=== PATIENT | female | born 1990 | race Two or more races ===

== ENCOUNTER 2021-03-23 06:38 | Emergency (ER) | payer OTHER ==
[~2021-03-23] VITALS: Ht 157.5 cm; Wt 65.8 kg
--- NOTE | 2021-03-23 06:57 | NUR ---
PRESENTED TO THE ER FOR C/O UPPER ABD PAIN RADIATING TO THE BACK AND NECK SINCE LAST NIGHT. +NAUSEA, - VOMITING OR DIARRHEA. + CHILLS. 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 -DYSURIA. PT IS ON LAST DAYS OF HER MENSTRUAL CYCLE. PT AMBULATORY TO THE BATHROOM. URINE COLLECTED. PT WAS PLACED IN BED 1 ER ON MONITOR. VSS. WILL CONT TO MONITOR .
[2021-03-23] MEDS ORDERED: LIDOCAINE VISCOUS 2% UD 15 ML UDC ONE (07:23)
[2021-03-23] MEDS ORDERED: MAG HYDROX/AL HYDROX/SIMETH 30 ML UDC ONE (07:23)
[2021-03-23] MEDS ORDERED: ONDANSETRON HCL/PF 4 MG/2 ML VIAL ONE (07:23)
--- NOTE | 2021-03-23 07:30 | NUR ---
BLOODWORK COLLECTED AND SENT TO LAB
[2021-03-23] MEDS: IV NS 0.9% 1,000 ML BAG IV ONE (07:39)
[2021-03-23 07:40] LABS: BASOPHILS % (AUTO) 0.4 % (0.0-2.0); EOSINOPHILS % (AUTO) 2.3 % (0.0-6.0); HEMATOCRIT 41 % (33-45); HEMOGLOBIN 13.9 g/dL (11.5-14.8); LYMPHOCYTES % (AUTO) 23.3 % (20.0-44.0); MEAN CORPUSCULAR HGB CONC 34 g/dl (31.0-36.0); MEAN CORPUSCULAR VOLUME 89 fL (82-100); MONOCYTES # (AUTO) 0.6 K/uL (0.1-1.30); NEUTROPHILS # (AUTO) 5.8 K/uL (1.8-8.9); PLATELET COUNT (AUTO) 251 K/uL (150-450); RED BLOOD CELL COUNT(AUTO) 4.54 MIL/uL (4.0-5.2); WHITE BLOOD COUNT (AUTO) 8.7 K/uL (4.3-11.0)
[2021-03-23] MEDS: ONDANSETRON HCL/PF 4 MG/2 ML VIAL IVP ONE (07:40)
--- NOTE | 2021-03-23 07:40 | NUR ---
INITIATED J CARLOS #20G ON NS
[2021-03-23] MEDS: MAG HYDROX/AL HYDROX/SIMETH 30 ML UDC PO ONE (07:41)
[2021-03-23] MEDS: LIDOCAINE VISCOUS 2% UD 15 ML UDC MM ONE (07:41)
[2021-03-23 07:48] LABS: BILIRUBIN,URINE NEGATIVE (NEGATIVE); COLOR,URINE YELLOW (YELLOW); LEUKOCYTE ESTERASE ,URINE NEGATIVE (NEGATIVE); NITRITE, URINE NEGATIVE (NEGATIVE); PROTEIN,URINE NEGATIVE (NEGATIVE); UGLUCOSE NEGATIVE (NEGATIVE); UROBILINOGEN,URINE 0.2 EU/dL (0.2)
[2021-03-23 07:57] LABS: BACTERIA,URINE Rare /HPF (None Seen); SQUAMOUS EPITHELIAL CELL,UR Few /HPF (None Seen); WBC,URINE 0-2 /HPF (0-3)
[2021-03-23 08:00] LABS: ALBUMIN 3.7 g/dL (3.4-5.0); BILIRUBIN,DIRECT 0.1 mg/dL (0.0-0.2); BILIRUBIN,TOTAL 0.4 mg/dL (0.2-1.0); CREATININE 0.6 mg/dL (0.6-1.3); POTASSIUM 3.7 mmol/L (3.5-5.1); TOTAL PROTEIN, SERUM 7.2 g/dL (6.4-8.2)
--- NOTE | 2021-03-23 08:10 | NUR ---
URINE COLLECTED AND SENT TO LAB
[2021-03-23] MEDS ORDERED: IV NS 0.9% 250 ML IV ONE (09:59)
[2021-03-23] MEDS ORDERED: IOHEXOL-300 100 ML VIAL IV ONE (09:59)
[2021-03-23] MEDS ORDERED: CT SWABBABLE VALVE TRANS SET 1 EA INFUS.SET MC ONE (10:00)
--- NOTE | 2021-03-23 10:25 | NUR ---
TAKEN TO CT
[2021-03-23] MEDS ORDERED: OMEP20CA15 PO (11:24)
--- NOTE | 2021-03-23 11:33 | NUR ---
DR MOSER AT BEDSIDE
[2021-03-23] MEDS ORDERED: DOCU-141 PO (11:36)
[2021-03-23] MEDS ORDERED: POLY17PO4 PO (11:36)
[2021-03-23 11:59] VITALS: BP 125/80
== END 2021-03-23 11:59 | disposition home or self-care (01) ==
LOC: ER 06:47
DX: K21.9 Gastro-esophageal reflux disease without esophagitis (principal); K44.9 Diaphragmatic hernia without obstruction or gangrene; R11.2 Nausea with vomiting, unspecified; Z98.890 Other specified postprocedural states; Z79.899 Other long term (current) drug therapy
CPT/HCPCS: 36415; 71045; 74176; 76705; 80048; 80076; 81001; 83690; 84703; 85025; 93005; 96361; 96374; 99285; J2405; J7050; Q9967